=== PATIENT | female | born 2000 | race Caucasian/White ===

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

== ENCOUNTER 2018-01-04 14:13 | Outpatient (CLI) | payer OTHER ==
--- NOTE | 2018-01-04 16:53 | MRI ---
MRI PELVIS WITHOUT IV CONTRAST: INDICATIONS: A 17-year-old female with pelvic pain and low back pain for three years. FINDINGS: There is no joint effusion seen within the SI joints. The subchondral bone plates are intact. No ma rrow signal abnormality is evident. The sacral and neural foramina appear widely patent. No acute f racture is demonstrated. The visualized pubic symphysis appears within normal limits. The visualize d aspects of the hips appear within normal limits. No free fluid or enlarged lymph nodes are evident . The bladder, rectum, and perirectal soft tissues appear within normal limits. No pathologically e nlarged lymph nodes are evident. IMPRESSION: No acute abnormality. POS: [facility]
== END 2018-01-04 14:14 | disposition home or self-care (01) ==
LOC: BICMRI 14:13
PROVIDERS: ATTEND Internal Medicine Rheumatology
DX: M25.559 Pain in unspecified hip (principal)
CPT/HCPCS: 72195